=== PATIENT | male | born 1960 | race Caucasian/White ===

== ENCOUNTER 2017-05-18 17:58 | Emergency (ER) | payer MEDICAID, OTHER ==
[~2017-05-18] VITALS: Ht 175.3 cm; Wt 65.8 kg
[2017-05-18 19:04] LABS: Urine Specific Gravity 1.017 (1.001-1.035)
[2017-05-18 19:05] LABS: Urine Blood Negative /uL (Negative)
[2017-05-18 19:25] LABS: Urine Bacteria FEW /hpf (None Seen); Urine Fine Granular Cast 2+ /lpf; Urine Hyaline Cast 5 /lpf (0 - 2); Urine WBC 2 /hpf (0 - 3)
[2017-05-18 19:26] LABS: Urine Mucus FEW (None Seen)
[2017-05-18 20:53] LABS: Basophils # (auto) 0.1 uL; Basophils % (auto) 0.5 % (0.0-2.0); Eosinophils # (auto) 0 uL; Hematocrit 48.8 % (41.0-53.0); Lymphocytes # (auto) 1.3 uL; Lymphocytes % (auto) 6.7 % (10.0-50.0); Mean Corpuscular Hemoglobin 30.1 pg (28.0-32.0); Mean Corpuscular Hgb Conc. 32.8 g/dL (32.0-36.0); Mean Corpuscular Volume 91.8 fL (80.0-100.0); Monocytes # (auto) 1.7 uL; Monocytes % (auto) 9.2 % (0.0-12.0); Neutrophils # (auto) 15.7 uL; Neutrophils % (auto) 83.6 % (37.0-80.0); Nucleated Red Blood Cells % 0.1 %; Platelet Count (auto) 420 10^3/uL (140-450); Red Blood Cells 5.31 10^6/uL (4.5-5.90); Red Cell Distribution Width 14.1 % (11.8-14.3); White Blood Cell 18.8 10^3/uL (4.4-10.8)
[2017-05-18] MEDS ORDERED: ONDANSETRON HCL 4 MG/2 ML VIAL IV ONE ×2 (21:00→23:45)
[2017-05-18] MEDS ORDERED: SODIUM CHLORIDE 0.9% 1,000 ML IV ONE ×2 (21:00→23:45)
[2017-05-18 21:17] LABS: Albumin 4.8 g/dL (3.4-5.0); Calcium 8.8 mg/dL (8.5-10.1); Potassium 4.7 mmol/L (3.5-5.1)
[2017-05-18 21:19] LABS: Bilirubin, Total 0.4 mg/dL (0.2-1.0); Total Protein 8.8 g/dL (6.4-8.2)
[2017-05-18 22:20] LABS: Amylase 35 U/L (25-115); Lipase 68 U/L (73-393)
[2017-05-18] MEDS ORDERED: ALPRAZolam 0.5 MG TAB PO ONE (23:30)
[2017-05-18] MEDS ORDERED: HYDROmorphone HCL 2 MG/ML VL IV ONE (23:45)
[2017-05-19 00:45] VITALS: BP 135/91
[2017-05-19] MEDS ORDERED: ACETAMINOPHEN 325 MG TAB PO ONE (01:15)
[2017-05-19 02:33] LABS: Amphetamine Screen, Urine NEGATIVE (NEGATIVE); Barbiturate Scree,Urine NEGATIVE (NEGATIVE); Benzodiazephine Screen, Urine POSITIVE (NEGATIVE); Cannabinoid Screen, Urine NEGATIVE (NEGATIVE); Cocaine Screen, Urine NEGATIVE (NEGATIVE); Opiate Scree,Urine POSITIVE (NEGATIVE); Phencyclidine Screen, Urine NEGATIVE (NEGATIVE)
== END 2017-05-19 02:37 | disposition home or self-care (01) ==
LOC: ER 17:58
DX: N43.3 Hydrocele, unspecified (principal); F10.129 Alcohol abuse with intoxication, unspecified; G92 Toxic encephalopathy; N43.41 Spermatocele of epididymis, single
CPT/HCPCS: 36415; 74176; 76870; 80053; 80307; 80320; 81001; 82150; 82962; 83690; 85025; 93005; 96361; 96374; 96375; 96376; 99285; J1170; J2405; J7030

== ENCOUNTER → 2020-07-14 | Day surgery (SDC) | payer MEDICAID ==
[~2020-07-14] VITALS: Ht 175.3 cm; Wt 71.7 kg
[~2020-07-14] MED LIST: ALPR0.5T PO; AMLO-496 PO; DexAMETHasone SOD PHOS 10MG/1ML VIAL INJ ONE; GLYCOPYRROLATE 0.2 MG/ML 1ML VIAL ONE; HYDROmorphone HCL 2 MG/ML VL IV PRN; LIDOCAINE 2% (LOCAL ANESTH.) PF 5ml SDV ONE; LISI-648 PO; MEPERIDINE HCL (50 MG/ML) 1 ML VIAL ONE; METOCLOPRAMIDE HCL 5MG/ml INJ 2ml VIAL IV PRN; MIDAZOLAM HCL 1MG/1ML-2 ML VIAL ONE; NEOSTIGMINE 1 MG/ML INJ (10mg/10ML VIAL) ONE; PROPOFOL 10 MG/ML 20 ML IV ONE; ROCURONIUM 10MG/ML 10ML VIAL IV ONE; ceFAZolin 1GM/50ML 50 ML IV ONE; fentaNYL CITRATE 100 MCG/2 ML VL ONE
[2020-07-14 11:25] VITALS: BP 102/68
== END | disposition home or self-care (01) ==
LOC: SUR 06:23
PROVIDERS: ATTEND Urology
PROC: 0TJB8ZZ Inspection of Bladder, Via Natural or Artificial Opening Endoscopic (ICD-10-PCS; principal; 2020-07-14 09:50)
DX: N32.0 Bladder-neck obstruction (principal); R33.9 Retention of urine, unspecified; D64.9 Anemia, unspecified; K40.90 Unilateral inguinal hernia, without obstruction or gangrene, not specified as recurrent; E16.2 Hypoglycemia, unspecified; F32.9 Major depressive disorder, single episode, unspecified; I10 Essential (primary) hypertension; F41.0 Panic disorder [episodic paroxysmal anxiety]; F41.9 Anxiety disorder, unspecified; Z20.822 Contact with and (suspected) exposure to COVID-19; Z98.890 Other specified postprocedural states; Z79.899 Other long term (current) drug therapy
CPT/HCPCS: 52640; 82962; J0690; J1100; J2001; J2175; J2250; J2704; J3010; U0003